=== PATIENT | female | born 1960 | race Caucasian/White ===

== ENCOUNTER 2017-03-10 04:00 | Emergency (ER) | payer MEDICARE ==
[2017-03-10] MEDS ORDERED: DUONEB 0.5-3 MG/3 ml Neb IH ONE ×2 (04:21→04:27)
[2017-03-10] MEDS ORDERED: DELTASONE 20 MG PO ONE (04:30)
--- NOTE | 2017-03-10 04:44 | ERPHSYRPT ---
- History of Present Illness Time Seen by Provider: 03/10/17 04:10 Source: patient Patient Subjective Stated Complaint: Pt sts sick for approx 1 week. Was seen last week and given steroid shot. Got Z-Nestor yesterday and started it. Tonight with right rib pain and feeling short of breath. Sts rib pain worse with deep inspiration. Triage Nursing Assessment: Pt alert, oriented, answers all questions appropriately. Skin p/w/d, resps non-labored. SPO2 98% room air. Lung sounds diminished all flores with coarse expiratory sounds right posterior upper and lower lobes. Physician History: PATIENT WITH A HISTORY OF COPD COMPLAINS OF A NONPRODUCTIVE COUGH FOR 1 WEEK. RECEIVED A STEROID INJECTION COUPLE OF DAYS AGO AND PLACED ON ANTIBIOTIC ZITHROMAX YESTERDAY, HAS OCCASIONAL LABORED BREATHING. DENIES FEVER, CHILLS OR CHEST PAIN. Timing/Duration: day(s) Cough Quality/Degree: dry cough Possible Cause: occasional episodes Modifying Factors: Improves With: activity International travel in last 2 weeks: No Allergies/Adverse Reactions: pregabalin [From Lyrica] Allergy (Intermediate, Verified 10/05/14 18:47) Swelling of Feet SWELLING OF LEGS sulfamethoxazole [From Bactrim] Allergy (Intermediate, Verified 03/10/17 04:08) Difficulty Swallowing trimethoprim [From Bactrim] Allergy (Intermediate, Verified 03/10/17 04:08) Difficulty Swallowing cephalexin [From Keflex] Allergy (Mild, Verified 03/10/17 04:08) Itching naproxen Allergy (Mild, Verified 10/05/14 18:47) red dye [Red Dye] Allergy (Mild, Verified 10/05/14 18:47) RASH doxycycline Allergy (Unknown, Verified 10/05/14 18:47) PT CANT REMEMBER WHAT IT DOES TO HER ONLY THAT SHE HAS AN ALLERGY TO IT gabapentin Allergy (Verified 10/05/14 18:47) Home Medications: Aspirin EC 325 mg [Ecotrin 325 MG] 325 mg PO DAILY 03/10/17 [History] Furosemide [Lasix] 20 mg PO DAILY 03/10/17 [History] Metoprolol Tartrate 25 mg [Lopressor 25MG Tab] 25 mg PO BID 03/10/17 [ History] Hx Tetanus, Diphtheria Vaccination/Date Given: Yes Hx Influenza Vaccination/Date Given: Yes Hx Pneumococcal Vaccination/Date Given: No Immunizations Up to Date: Yes - Review of Systems Constitutional: No Symptoms Eyes: No Symptoms Ears, Nose, & Throat: No Symptoms Respiratory: Cough Cardiac: No Symptoms Abdominal/Gastrointestinal: No Symptoms Genitourinary Symptoms: No Symptoms Musculoskeletal: No Symptoms Skin: No Symptoms Endocrine: No Symptoms Hematologic/Lymphatic: No Symptoms - Past Medical History Pertinent Past Medical History: Yes Neurological History: Migraines, Other ENT History: No Pertinent History Cardiac History: Hypertension Respiratory History: COPD, Pneumonia Endocrine Medical History: No Pertinent History Musculoskeletal History: Arthritis, Fibromyalgia, Osteoarthritis GI Medical History: GERD History: No Pertinent History Psycho-Social History: No Pertinent History Female Reproductive Disorders: No Pertinent History Other Medical History: history of MS - Past Surgical History Past Surgical History: Yes Neuro Surgical History: No Pertinent History Cardiac: No Pertinent History, Vascular Surgery Respiratory: No Pertinent History Gastrointestinal: Appendectomy, Hernia Repair Genitourinary: No Pertinent History Musculoskeletal: No Pertinent History Female Surgical History: No Pertinent History, Hysterectomy, Tubal Ligation Other Surgical History: tonsillectomy, ABD BYPASS SURG - Social History Smoking Status: Current every day smoker How long have you smoked: 44 Exposure to second hand smoke: No Drug Use: none Patient Lives Alone: No - Nursing Vital Signs Nursing Vital Signs: Initial Vital Signs Temperature 98.1 F 03/10/17 04:03 Pulse Rate 60 03/10/17 04:03 Respiratory Rate 18 03/10/17 04:03 Blood Pressure 135/97 03/10/17 04:03 O2 Sat by Pulse Oximetry 96 03/10/17 04:03 Pain Scale Pain Intensity 3 - Physical Exam General Appearance: no apparent distress, alert Eye Exam: PERRL/EOMI, eyes nml inspection Ears, Nose, Throat Exam: normal ENT inspection, TMs normal, pharynx normal, moist mucous membranes Neck Exam: normal inspection, non-tender, supple, full range of motion Respiratory Exam: diminished breath sounds (THERE IS NO ACCESSORY MUSCLE USE OR AUDIBLE WHEEZES), other (TERMINAL EXPIRATORY WHEEZES, NO RHONCHI), No respiratory distress Cardiovascular Exam: regular rate/rhythm, normal heart sounds Gastrointestinal/Abdomen Exam: soft, normal bowel sounds, No tenderness Back Exam: normal inspection, No CVA tenderness, No vertebral tenderness Extremity Exam: normal inspection, normal range of motion Neurologic Exam: alert, oriented x 3, cooperative, normal mood/affect, sensation nml, No motor deficits Skin Exam: normal color, warm, dry, No rash Lymphatic Exam: No adenopathy SpO2 Interpretation: normal SpO2: 98 Oxygen Delivery: Room Air - Radiology Exams Chest X-ray Interpretation: Interpreted by me (COPD WITHOUR INFILTRATES) Ordered Tests: Active Orders 24 hr Category Date Time Status CHEST 1 VIEW (PORTABLE) Stat Exams 03/10/17 04:23 Ordered Respiratory Nebulizer STAT RT 03/10/17 04:21 Active Medication Summary Discontinued Medications Generic Name Dose Route Start Last Admin Trade Name Abundioq PRN Reason Stop Dose Admin Albuterol/Ipratropium 3 ml 03/10/17 04:21 Duoneb 0.5-3 Mg/3 Ml Neb IH 03/10/17 04:22 STAT ONE Albuterol/Ipratropium Confirm 03/10/17 04:27 Duoneb 0.5-3 Mg/3 Ml Neb Administered 03/10/17 04:28 Dose 3 ml IH .STK-MED ONE Prednisone 60 mg 03/10/17 04:30 Deltasone 20 Mg PO 03/10/17 04:31 STAT ONE - Progress Progress: improved Air Movement: good Progress Note: 03/10/17 04:46 PATIENT GIVEN DUO NEB AEROSOL TREATMENT, PREDNISONE 60 MG ORALLY Counseled pt/family regarding: diagnosis, need for follow-up, rad results - Departure Time of Disposition: 05:10 Departure Disposition: Home Clinical Impression: EXACERBATION COPD Condition: Stable Critical Care Time: No Referrals: ANGELA QUINTEROS [Primary Care Provider] - Additional Instructions: BEGIN AEROSOL TREATMENTS EVERY 4 HOURS FOR DIFFICULTY BREATHING. CONTINUE ANTIBIOTIC ZITHOMAX DIRECTED. PREDNISONE 20MG, 2 TABLETS DAILY FOR 5 DAYS. TAKE OVER THE COUNTER COUGH FOR COUGHING. CONSULT YOUR PRIMARY HEALTH CARE PROVIDER FOR EVALUATION. FOLLOWUP WITH YOUR PRIMARY CARE PHYSICIAN FOR EVALUATION AND REFERRAL TO [facility]. Prescriptions: Prednisone 20 mg [Deltasone 20 mg] 2 tab PO DAILY #10 tablet
[2017-03-10] MEDS ORDERED: DELTASONE 20 MG ONE (04:56)
[2017-03-10 05:20] VITALS: BP 108/61; PULSE 60; O2SAT 96
--- NOTE | 2017-03-10 09:00 | XRAY ---
Indication: Cough. Comparison: October 05, 2014. Portable chest remains hyperinflated and clear with incidental calcified granulomas. Heart is not enlarged. Bony thorax intact again with mild degenerative changes. Impression: Stable nonacute hyperinflated chest.
== END 2017-03-10 05:20 | disposition home or self-care (01) ==
LOC: ED 04:00
DX: J44.1 Chronic obstructive pulmonary disease with (acute) exacerbation (principal); I10 Essential (primary) hypertension
CPT/HCPCS: 71010; 94640; 99284; A9270-GY; J7506

== ENCOUNTER 2022-10-13 18:09 | Inpatient (IN) | payer OTHER, MEDICARE ==
--- NOTE | 2022-10-13 18:21 | ERPHSYRPT ---
- History of Present Illness Time Seen by Provider: 10/13/22 18:20 Source: patient Exam Limitations: no limitations Physician History: This is a 62-year-old white female patient who has steroid-dependent and 3 L oxygen nasal cannula dependent COPD and continues to smoke cigarettes. She wears a CPAP machine at night. She has a history of CHF, hypertension, atrial fibrillation on Xarelto, CO2 retention, migraine headaches, gastroesophageal reflux disease, hyperlipidemia and fibromyalgia. In the last 2 days she has had worsening shortness of breath. She denies chest pain at this time. She has not had a fever. She has no abdominal pain. She has had no nausea vomiting or diarrhea. Activities at Onset: none Severity of Dyspnea-Max: moderate Severity of Dyspnea-Current: moderate Possible Cause: frequent episodes Modifying Factors: Improves With: activity (Worsens), oxygen (Improves) Associated Symptoms: denies symptoms, No chest pain/discomfort Allergies/Adverse Reactions: pregabalin [From Lyrica] Allergy (Intermediate, Verified 10/13/22 18:25) Swelling of Feet SWELLING OF LEGS sulfamethoxazole [From Bactrim] Allergy (Intermediate, Verified 10/13/22 18:25) Difficulty Swallowing trimethoprim [From Bactrim] Allergy (Intermediate, Verified 10/13/22 18:25) Difficulty Swallowing cephalexin [From Keflex] Allergy (Mild, Verified 10/13/22 18:25) Itching naproxen Allergy (Mild, Verified 10/13/22 18:25) red dye [Red Dye] Allergy (Mild, Verified 10/13/22 18:25) RASH doxycycline Allergy (Unknown, Verified 10/13/22 18:25) PT CANT REMEMBER WHAT IT DOES TO HER ONLY THAT SHE HAS AN ALLERGY TO IT gabapentin Allergy (Verified 10/13/22 18:25) Home Medications: Furosemide [Lasix] 20 mg PO DAILY 03/10/17 [History] Metoprolol Tartrate 25 mg [Lopressor 25MG Tab] 25 mg PO BID 03/10/17 [History] Atorvastatin Calcium 80 mg PO HS 10/13/22 [History] Fluticasone/Umeclidin/Vilanter [Trelegy Ellipta 100-62.5-25] 1 puff IH DAILY 10/13/22 [History] Ipratropium/Albuterol Sulfate [Combivent Respimat Inhal [place]] 1 puff IH QID 10/13/22 [History] Nicotine 21 mg [Nicoderm CQ 21 MG] 1 patch TOP DAILY 10/13/22 [History] Omeprazole 40 mg PO DAILY 10/13/22 [History] Potassium Chloride 10 mg PO DAILY 10/13/22 [History] Rivaroxaban [Xarelto] 15 mg PO DAILY 10/13/22 [History] Hx Tetanus, Diphtheria Vaccination/Date Given: Yes Hx Influenza Vaccination/Date Given: Yes Hx Pneumococcal Vaccination/Date Given: No Travel Risk - International Travel Have you traveled outside of the country in past 3 weeks: No - Coronavirus Screening Are you exhibiting any of the following symptoms?: Yes Symptoms: Shortness of Breath Close contact with a COVID-19 positive Pt in past 14-21 Days: No - Review of Systems Constitutional: No Symptoms Eyes: No Symptoms Ears, Nose, & Throat: No Symptoms Respiratory: Dyspnea Cardiac: No Symptoms Abdominal/Gastrointestinal: No Symptoms Genitourinary Symptoms: No Symptoms Musculoskeletal: No Symptoms Skin: No Symptoms Neurological: No Symptoms Psychological: No Symptoms Endocrine: No Symptoms Hematologic/Lymphatic: No Symptoms Immunological/Allergic: No Symptoms All Other Systems: Reviewed and Negative - Past Medical History Pertinent Past Medical History: Yes Neurological History: Migraines, Other ENT History: No Pertinent History Cardiac History: Hypertension Respiratory History: COPD, Pneumonia Endocrine Medical History: No Pertinent History Musculoskeletal History: Arthritis, Fibromyalgia, Osteoarthritis GI Medical History: GERD History: No Pertinent History Psycho-Social History: No Pertinent History Female Reproductive Disorders: No Pertinent History Other Medical History: history of MS - Past Surgical History Past Surgical History: Yes Neuro Surgical History: No Pertinent History Cardiac: No Pertinent History, Vascular Surgery Respiratory: No Pertinent History Gastrointestinal: Appendectomy, Hernia Repair Genitourinary: No Pertinent History Musculoskeletal: No Pertinent History Female Surgical History: No Pertinent History, Hysterectomy, Tubal Ligation Other Surgical History: tonsillectomy, ABD BYPASS SURG - Social History Smoking Status: Current every day smoker How long have you smoked: 44 Exposure to second hand smoke: No Drug Use: none Patient Lives Alone: No - Nursing Vital Signs Nursing Vital Signs: Initial Vital Signs Temperature 98.1 F 10/13/22 18:25 Pulse Rate 104 H 10/13/22 18:25 Respiratory Rate 18 10/13/22 18:25 Blood Pressure 95/55 10/13/22 18:25 O2 Sat by Pulse Oximetry 97 10/13/22 18:25 Pain Scale Pain Intensity 8 - Physical Exam General Appearance: no apparent distress, alert, anxiety Eye Exam: PERRL/EOMI, eyes nml inspection Ears, Nose, Throat Exam: hearing grossly normal, normal ENT inspection, normal pharynx Neck Exam: normal inspection, non-tender, supple, full range of motion Respiratory Exam: normal breath sounds, lungs clear, airway intact, No chest tenderness, No respiratory distress Cardiovascular/Chest Exam: normal heart sounds, regular rate/rhythm Abdominal/Gastrointestinal Exam: soft, normal bowel sounds, No tenderness Rectal Exam: not done Extremity Exam: non-tender, normal range of motion, pedal edema (Bilateral mild ankle edema) Neurologic Exam: alert, oriented x 3, cooperative, boot and saddle repair person II-XII nml as tested, normal mood/affect, nml cerebellar function, nml station & gait, sensation nml Skin Exam: normal color, warm, dry Lymphatic Exam: No adenopathy SpO2 Interpretation: normal O2 Delivery: Room Air - Course Nursing assessment & vital signs reviewed: Yes EKG Interpreted by Me: RATE (92), A-fib, Other (No acute ischemia on today's twelve-lead EKG which I interpreted.) Ordered Tests: Active Orders 24 hr Category Date Time Status Motor Vehicle [employer]er STAT Care 10/13/22 18:40 Active EKG-ER Only STAT Care 10/13/22 18:40 Active IV Insertion STAT Care 10/13/22 18:40 Active Oxygen-ED Only Nasal Cannula 3 lpm Care 10/13/22 18:40 Active Pulse Oximetry (ED) STAT Care 10/13/22 18:40 Active CHEST 1 VIEW (PORTABLE) Stat Exams 10/13/22 18:40 Taken ARTERIAL BLOOD GASES Stat Lab 10/13/22 19:02 Completed CBC W DIFF Stat Lab 10/13/22 19:00 Completed CMP Stat Lab 10/13/22 19:00 Completed D-DIMER QUANTITATIVE Stat Lab 10/13/22 19:00 Completed NT PRO BNPII Stat Lab 10/13/22 19:00 Completed TROPONIN Q4H Lab 10/13/22 19:00 Completed TROPONIN Q4H Lab 10/13/22 22:45 Ordered TROPONIN Q4H Lab 10/14/22 02:45 Ordered Respiratory Therapy Assessment DAILY RT 10/13/22 19:06 Active Transfer Order Routine Transfer 10/13/22 Ordered Medication Summary Discontinued Medications Generic Name Dose Route Start Last Admin Trade Name Grabiel PRN Reason Stop Dose Admin Albuterol Sulfate 2.5 mg 10/13/22 18:40 10/13/22 19:03 Albuterol Sulfate 2.5 Mg/3 Ml Neb IH 10/13/22 18:41 2.5 mg STAT ONE Administration Albuterol Sulfate Confirm 10/13/22 19:01 Albuterol Sulfate 2.5 Mg/3 Ml Neb Administered 10/13/22 19:02 Dose 2.5 mg IH .STK-MED ONE Methylprednisolone Sodium 0 mg 10/13/22 18:40 10/13/22 19:05 Succinate 125 mg/ Sterile IV 10/13/22 18:41 125 mg Water 2 ml STAT ONE Administration Furosemide 40 mg 10/13/22 19:40 10/13/22 20:12 Furosemide 40 Mg/4 Ml Vial IV 10/13/22 19:41 40 mg STAT ONE Administration Furosemide Confirm 10/13/22 20:09 Furosemide 40 Mg/4 Ml Vial Administered 10/13/22 20:10 Dose 40 mg .ROUTE .STK-MED ONE Methylprednisolone Sodium Succinate Confirm 10/13/22 19:04 Methylprednis Sod Succ 125 Mg/2 Ml Vial Administered 10/13/22 19:05 Dose 125 mg .ROUTE .STK-MED ONE Sterile Water Confirm 10/13/22 19:04 Water For Injection,Sterile 10 Ml Vial Administered 10/13/22 19:05 Dose 10 ml IJ .STK-MED ONE Lab/Rad Data: Laboratory Result Diagrams 10/13/22 19:00 10/13/22 19:00 Laboratory Results 10/13/22 10/13/22 10/13/22 Range/Units 19:02 19:00 19:00 WBC (4.0-10.5) x10^3/uL RBC (4.1-5.4) x10^6/uL Hgb (12.0-16.0) g/dL Hct (35-47) % MCV (78-100) fL MCH (26-32) pg MCHC (32-36) g/dL RDW (11.5-14.0) % Plt Count (150-450) x10^3/uL MPV (7.5-11.0) fL Gran % (36.0-66.0) % Immature Gran % (Auto) (0.00-0.4) % Nucleat RBC Rel Count (0.00-0.1) % Eos # (Auto) (0-0.5) x10^3/uL Immature Gran # (Auto) (0.00-0.03) x10^3u/L Absolute Lymphs (auto) (1.0-4.6) x10^3/uL Absolute Monos (auto) (0.0-1.3) x10^3/uL Absolute Nucleated RBC (0.00-0.01) x10^3u/L Lymphocytes % (24.0-44.0) % Monocytes % (0.0-12.0) % Eosinophils % (0.00-5.0) % Basophils % (0.0-0.4) % Absolute Granulocytes (1.4-6.9) x10^3/uL Basophils # (0-0.4) x10^3/uL D-Dimer (0.0-0.50) mg/L Puncture Site LEFT BRACHIAL pCO2 47 H (35-45) mmHg pO2 35 L* (75-100) mmHg Base Excess 0.9 (-2.0-2.0) O2 Saturation 56.1 L (94-100) g/dF ABG pH 7.36 (7.35-7.45) ABG HCO3 26.6 (22-28) ABG O2 Sat (Measured) 62.7 L (95-100) % Mitchell Test NOT APPLICABLE A-a Gradient 134 a/A Ratio 0.21 Hemoglobin 8.5 Carboxyhemoglobin 9.4 H* (0.0-6.9) % THgb Methemoglobin 1.1 L (1.4-1.5) % Temperature 37.0 C POC O2 Flow Rate 32 % Sodium (137-145) mmol/L Potassium 4.7 (3.5-5.1) mmol/L Chloride (98-107) mmol/L Carbon Dioxide (22-30) mmol/L Anion Gap (5-15) MEQ/L BUN (7-17) mg/dL Creatinine (0.52-1.04) mg/dL Estimated GFR ML/MIN Glucose (74-106) mg/dL Calcium (8.4-10.2) mg/dL Total Bilirubin (0.2-1.3) mg/dL AST (14-36) U/L ALT (0-35) U/L Alkaline Phosphatase (38-126) U/L Troponin I 0.022 (0.000-0.034) ng/mL NT-Pro-B Natriuret Pep (<300) pg/mL Serum Total Protein (6.3-8.2) g/dL Albumin (3.5-5.0) g/dL Influenza Type A Ag NEGATIVE (NEGATIVE) Influenza Type B Ag NEGATIVE (NEGATIVE) RSV (PCR) NEGATIVE (NEGATIVE) SARS-CoV-2 (PCR) NEGATIVE (NEGATIVE) 10/13/22 10/13/22 10/13/22 Range/Units 19:00 19:00 19:00 WBC 13.3 H (4.0-10.5) x10^3/uL RBC 3.24 L (4.1-5.4) x10^6/uL Hgb 7.8 L (12.0-16.0) g/dL Hct 28.2 L (35-47) % MCV 87.0 (78-100) fL MCH 24.1 L (26-32) pg MCHC 27.7 L (32-36) g/dL RDW 19.2 H (11.5-14.0) % Plt Count 291 (150-450) x10^3/uL MPV 9.4 (7.5-11.0) fL Gran % 88.6 H (36.0-66.0) % Immature Gran % (Auto) 0.8 H (0.00-0.4) % Nucleat RBC Rel Count 2.6 H (0.00-0.1) % Eos # (Auto) 0.05 (0-0.5) x10^3/uL Immature Gran # (Auto) 0.11 H (0.00-0.03) x10^3u/L Absolute Lymphs (auto) 0.58 L (1.0-4.6) x10^3/uL Absolute Monos (auto) 0.76 (0.0-1.3) x10^3/uL Absolute Nucleated RBC 0.35 H (0.00-0.01) x10^3u/L Lymphocytes % 4.4 L (24.0-44.0) % Monocytes % 5.7 (0.0-12.0) % Eosinophils % 0.4 (0.00-5.0) % Basophils % 0.1 (0.0-0.4) % Absolute Granulocytes 11.78 H (1.4-6.9) x10^3/uL Basophils # 0.01 (0-0.4) x10^3/uL D-Dimer 1.87 H* (0.0-0.50) mg/L Puncture Site pCO2 (35-45) mmHg pO2 (75-100) mmHg Base Excess (-2.0-2.0) O2 Saturation (94-100) g/dF ABG pH (7.35-7.45) ABG HCO3 (22-28) ABG O2 Sat (Measured) (95-100) % Mitchell Test A-a Gradient a/A Ratio Hemoglobin Carboxyhemoglobin (0.0-6.9) % THgb Methemoglobin (1.4-1.5) % Temperature C POC O2 Flow Rate % Sodium 136 L (137-145) mmol/L Potassium 4.6 (3.5-5.1) mmol/L Chloride 97 L (98-107) mmol/L Carbon Dioxide 32 H (22-30) mmol/L Anion Gap 11.0 (5-15) MEQ/L BUN 49 H (7-17) mg/dL Creatinine 1.94 H (0.52-1.04) mg/dL Estimated GFR 27.8 ML/MIN Glucose 128 H (74-106) mg/dL Calcium 8.1 L (8.4-10.2) mg/dL Total Bilirubin 0.50 (0.2-1.3) mg/dL AST 17 (14-36) U/L ALT 16 (0-35) U/L Alkaline Phosphatase 128 H (38-126) U/L Troponin I (0.000-0.034) ng/mL NT-Pro-B Natriuret Pep 82708 (<300) pg/mL Serum Total Protein 5.4 L (6.3-8.2) g/dL Albumin 3.0 L (3.5-5.0) g/dL Influenza Type A Ag (NEGATIVE) Influenza Type B Ag (NEGATIVE) RSV (PCR) (NEGATIVE) SARS-CoV-2 (PCR) (NEGATIVE) - Progress Progress: improved, re-examined Air Movement: fair Progress Note: 10/13/22 19:26 Chest x-ray was interpreted by me. There is a question of increased bibasilar vascular markings. There is a small right pleural effusion. 10/13/22 20:24 This patient has medical issues that are of high complexity. The level of complexity and the work-up based on the patient's past medical history, review of her medication list, review of her medication allergy list, history of present illness and physical examination findings. The work-up includes CBC, CMP, chest x-ray, twelve-lead EKG, troponin, BNP, D-dimer. I reviewed the res ults of the above-stated findings and the results were discussed with the patient and her daughter. Patient has diagnosis of chronic progressive renal disease, COPD exacerbation, CHF, anemia, elevated D-dimer, hypoxia and shortness of breath. I spoke with Dr. Miller who is the telehospitalist on this evening. I reviewed the above work-up, results as well as the patient's history and physical findings and chest x-ray, twelve-lead EKG results. He accepts the patient in admission. We will place her on telemetry. Dr. Miller and I decided on providing the patient with 40 mg of intravenous Lasix and hold on the type and cross. I will type and screen her in the event her repeat hemoglobin is low. 10/13/22 20:31 Blood Culture(s) Obtained: Yes Antibiotics given: No Counseled pt/family regarding: lab results, diagnosis, rad results, smoking cessation Medical Desision Making - Independent Historian Additional History obtained from: Spouse - Discussion of managment Care discussed with:: hospitalist (Dr. Miller) Reviewed:: Test results, Need for additional workup Agreed on:: Treatment plan, decision to admit Will see patient: in hospital - Diagnostic Testing Diagnostic test were ordered, analyzed, and reviewed by me: Yes Radiological Interpretation: Reviewed by me - Risk of complications The pt has a high risk of morbidity or mortality based on: Decision regarding hospitilization or escalation of hosp level of care - Departure Departure Disposition: In-patient Admission Clinical Impression: Leukocytosis, Anemia, Hypoxia, Atrial fibrillation, Shortness of breath, Elevated d-dimer, Chronic renal failure, COPD exacerbation Condition: Fair Critical Care Time: Yes Critical Care Time(excluding separately billable procedures): Critical 30-74 mins (45) Referrals: KALLIE ANTONY, CARDIOVASCULAR OPERATING ROOM NURSE [Primary Care Provider] - Follow up/PCP as directed Instructions: Chronic Obstructive Pulmonary Disease
[2022-10-13] MEDS ORDERED: solu-MEDROL 125 MG, Sterile H2O 10 ml 2 ML IV ONE ×2 (18:40)
[2022-10-13] MEDS ORDERED: PROVENTIL 2.5 MG/3 ML NEB IH ONE ×2 (18:40→19:01)
[2022-10-13] MEDS ORDERED: solu-MEDROL ONE (19:04)
[2022-10-13] MEDS ORDERED: Sterile H2O 10 ml IJ ONE (19:04)
[2022-10-13 19:08] LABS: Absolute Neutrophil Ct (ANC) 11.78 x10^3/uL (1.4-6.9); BASOPHIL % 0.1 % (0.0-0.4); Basophil (Absolute #) 0.01 x10^3/uL (0-0.4); Eosinophil % 0.4 % (0.00-5.0); Eosinophil (Absolute #) 0.05 x10^3/uL (0-0.5); Hematocrit 28.2 % (35-47); Hemoglobin 7.8 g/dL (12.0-16.0); IMMATURE GRAN # 0.11 x10^3u/L (0.00-0.03); IMMATURE GRAN % 0.8 % (0.00-0.4); Lymphocyte (Absolute #) 0.58 x10^3/uL (1.0-4.6); Lymphocytes % 4.4 % (24.0-44.0); Mean Corpuscular Hemoglobin 24.1 pg (26-32); Mean Corpuscular Hgb Concent. 27.7 g/dL (32-36); Mean Platelet Volume 9.4 fL (7.5-11.0); Monocyte (Absolute #) 0.76 x10^3/uL (0.0-1.3); Monocytes % 5.7 % (0.0-12.0); NUCLEATED RBC # 0.35 x10^3u/L (0.00-0.01); NUCLEATED RBC % 2.6 % (0.00-0.1); Neutrophil % 88.6 % (36.0-66.0); Platelet Count 291 x10^3/uL (150-450); Red Blood Count 3.24 x10^6/uL (4.1-5.4); Red Cell Distribution Width 19.2 % (11.5-14.0); White Blood Count 13.3 x10^3/uL (4.0-10.5)
[2022-10-13 19:28] LABS: A-aADO2 134; ABG HEMOGLOBIN 8.5; ABG POTASSIUM 4.7 (3.5-5.1); ARTERIAL BLD GAS O2 SATURATION 62.7 % (95-100); ARTERIAL BLOOD GAS BASE EXCESS 0.9 (-2.0-2.0); ARTERIAL BLOOD GAS FIO2 32 %; ARTERIAL BLOOD GAS PCO2 47 mmHg (35-45); ARTERIAL BLOOD GAS pH 7.36 (7.35-7.45); HCO3- 26.6 (22-28); HGB O2 SAT 56.1 g/dF (94-100); Methhemoglobin 1.1 % (1.4-1.5); paO2 pAO1 0.21
[2022-10-13 19:29] LABS: ARTERIAL BLOOD GAS PO2 35 mmHg (75-100); CARBOXYHEMOGLOBIN 9.4 % THgb (0.0-6.9)
[2022-10-13 19:30] LABS: BILIRUBIN,TOTAL 0.5 mg/dL (0.2-1.3); Calcium 8.1 mg/dL (8.4-10.2); Creatinine 1 1.94 mg/dL (0.52-1.04); EST GLOMERULAR FILTRATION RATE 27.8 ML/MIN; Potassium 4.6 mmol/L (3.5-5.1); Total Protein 5.4 g/dL (6.3-8.2)
[2022-10-13 19:30] LABS: ABG SITE LEFT BRACHIAL
[2022-10-13] MEDS ORDERED: Lasix 40 MG/4 ML IV ONE (19:40)
[2022-10-13 19:51] LABS: INFLUENZA A NEGATIVE (NEGATIVE); INFLUENZA B NEGATIVE (NEGATIVE); RESPIRATORY SYNCTIAL VIRUS NEGATIVE (NEGATIVE); SARS-CoV-2 Xpert Express NEGATIVE (NEGATIVE)
[2022-10-13] MEDS ORDERED: Lasix 40 MG/4 ML ONE (20:09)
[2022-10-13] MEDS ORDERED: Zofran 4 MG/2 ML VIAL IV PRN (21:13)
[2022-10-13] MEDS ORDERED: TYLENOL 325 MG PO PRN (21:13)
[2022-10-13 21:26] LABS: ABO TYPING A; Antibody Screen NEGATIVE (NEGATIVE); RH TYPING POSITIVE
[2022-10-13 21:49] LABS: Slide Review 1 YES
[2022-10-14] MEDS: PROVENTIL 2.5 MG/3 ML NEB IH SCH ×4 (00:06→18:48)
[2022-10-14] MEDS ORDERED: Nicoderm CQ 21 MG TOP SCH ×2 (02:00→22:00)
--- NOTE | 2022-10-14 02:08 | PCM.HP ---
History of Present Illness - Chief Complaint Chief Complaint: COPD with Exacerbation Date: 10/13/22 History of Present Illness: is a 62 year old female who presents with 3-4 days of progressive shortness of breath. She is an active smoker, consuming 1 ppd. She denies any chest pain or chest discomfort. She has intermittent ankle edema, but never awakes with swelling. She believes it was her smoking that triggered the exacerbation. She routinely uses 3 LPM of NC at home. In the ED she was requiring 6LPM. She feels limited by dyspnea. Medications & Allergies Home Medications: Home Medication List Furosemide [Lasix] 20 mg PO DAILY 03/10/17 [History Confirmed 10/13/22] Metoprolol Tartrate 25 mg [Lopressor 25MG Tab] 100 mg PO BID 03/10/17 [History Confirmed 10/13/22] Prednisone 20 mg [Deltasone 20 mg] 2 tab PO DAILY #10 tablet 03/10/17 [Rx Confirmed 10/13/22] Atorvastatin Calcium 80 mg PO HS 10/13/22 [History Confirmed 10/13/22] Fluticasone/Umeclidin/Vilanter [Trelegy Ellipta 100-62.5-25] 1 puff IH DAILY 10/13/22 [History Confirmed 10/13/22] Ipratropium/Albuterol Sulfate [Combivent Respimat Inhal [place]] 1 puff IH QID 10/13/22 [History Confirmed 10/13/22] Nicotine 21 mg [Nicoderm CQ 21 MG] 1 patch TOP DAILY 10/13/22 [History Confirmed 10/13/22] Omeprazole 40 mg PO DAILY 10/13/22 [History Confirmed 10/13/22] Potassium Chloride 10 mg PO DAILY 10/13/22 [History Confirmed 10/13/22] Rivaroxaban [Xarelto] 15 mg PO DAILY 10/13/22 [History Confirmed 10/13/22] Allergies/Adverse Reactions: Allergies Allergy/AdvReac Type Severity Reaction Status Date / Time pregabalin [From Lyrica] Allergy Intermediate Swelling Verified 10/13/22 18:25 of Feet sulfamethoxazole Allergy Intermediate Difficulty Verified 10/13/22 18:25 [From Bactrim] Swallowing trimethoprim [From Bactrim] Allergy Intermediate Difficulty Verified 10/13/22 18:25 Swallowing cephalexin [From Keflex] Allergy Mild Itching Verified 10/13/22 18:25 naproxen Allergy Mild Verified 10/13/22 18:25 red dye [Red Dye] Allergy Mild Verified 10/13/22 18:25 doxycycline Allergy Unknown Verified 10/13/22 18:25 gabapentin Allergy Verified 10/13/22 18:25 - Past Medical History Past Medical History: Yes Neurological History: Migraines ENT History: No Pertinent History Cardiac History: Congestive Heart Failure, Coronary Artery Disease, High Cholesterol, Hypertension Respiratory History: Asthma, CHF, COPD Endocrine Medical History: No Pertinent History Musculoskelatal History: Fractures GI Medical History: Other History: Dialysis, Renal Disease Pyscho-Social History: No Pertinent History Reproductive Disorders: Cervical Cancer Comment: Hysterectomy, Apendectomy, Perlvis FX. - Female History Are you now?: No - Past Surgical History Past Surgical History: Yes Neuro Surgical History: No Pertinent History Cardiac History: No Pertinent History Respiratory Surgery: No Pertinent History GI Surgical History: Appendectomy Genitourinary Surgical Hx: No Pertinent History Musculskeletal Surgical Hx: No Pertinent History Female Surgical History: Hysterectomy Other Surgical History: tonsillectomy, ABD BYPASS SURG - Social History Smoking Status: Current every day smoker How long have you smoked: 44 Exposure to second hand smoke: No Alcohol: None Drug Use: none - Physical Exam Vital Signs: Vital Signs - 24 hr Temp Pulse Resp BP Pulse Ox 10/14/22 00:06 92 H 19 95 10/13/22 23:36 97.7 F 107/58 10/13/22 22:00 98 H 19 97 10/13/22 21:41 97.1 F 98 H 19 97/61 10/13/22 20:16 85 20 115/70 94 L 10/13/22 19:16 78 23 112/68 94 L 10/13/22 19:06 78 24 92 L 10/13/22 18:40 100 10/13/22 18:25 98.1 F 104 H 18 95/55 97 General Appearance: no apparent distress Neurologic Exam: alert, oriented x 3, cooperative, normal mood/affect Respiratory Exam: diminished breath sounds Cardiovascular Exam: regular rate/rhythm, normal heart sounds Results - Labs Lab/Micro Results: Lab Results-Last 24 Hours 10/13/22 10/13/22 10/13/22 Range/Units 19:00 19:00 19:00 WBC 13.3 H (4.0-10.5) x10^3/uL RBC 3.24 L (4.1-5.4) x10^6/uL Hgb 7.8 L (12.0-16.0) g/dL Hct 28.2 L (35-47) % MCV 87.0 (78-100) fL MCH 24.1 L (26-32) pg MCHC 27.7 L (32-36) g/dL RDW 19.2 H (11.5-14.0) % Plt Count 291 (150-450) x10^3/uL MPV 9.4 (7.5-11.0) fL Gran % 88.6 H (36.0-66.0) % Immature Gran % (Auto) 0.8 H (0.00-0.4) % Nucleat RBC Rel Count 2.6 H (0.00-0.1) % Eos # (Auto) 0.05 (0-0.5) x10^3/uL Immature Gran # (Auto) 0.11 H (0.00-0.03) x10^3u/L Absolute Lymphs (auto) 0.58 L (1.0-4.6) x10^3/uL Absolute Monos (auto) 0.76 (0.0-1.3) x10^3/uL Absolute Nucleated RBC 0.35 H (0.00-0.01) x10^3u/L Lymphocytes % 4.4 L (24.0-44.0) % Monocytes % 5.7 (0.0-12.0) % Eosinophils % 0.4 (0.00-5.0) % Basophils % 0.1 (0.0-0.4) % Absolute Granulocytes 11.78 H (1.4-6.9) x10^3/uL Basophils # 0.01 (0-0.4) x10^3/uL Smear Path Review Pending D-Dimer 1.87 H* (0.0-0.50) mg/L Puncture Site pCO2 (35-45) mmHg pO2 (75-100) mmHg Base Excess (-2.0-2.0) O2 Saturation (94-100) g/dF ABG pH (7.35-7.45) ABG HCO3 (22-28) ABG O2 Sat (Measured) (95-100) % Mitchell Test A-a Gradient a/A Ratio Hemoglobin Carboxyhemoglobin (0.0-6.9) % THgb Methemoglobin (1.4-1.5) % Temperature C POC O2 Flow Rate % Sodium 136 L (137-145) mmol/L Potassium 4.6 (3.5-5.1) mmol/L Chloride 97 L (98-107) mmol/L Carbon Dioxide 32 H (22-30) mmol/L Anion Gap 11.0 (5-15) MEQ/L BUN 49 H (7-17) mg/dL Creatinine 1.94 H (0.52-1.04) mg/dL Estimated GFR 27.8 ML/MIN Glucose 128 H (74-106) mg/dL Calcium 8.1 L (8.4-10.2) mg/dL Total Bilirubin 0.50 (0.2-1.3) mg/dL AST 17 (14-36) U/L ALT 16 (0-35) U/L Alkaline Phosphatase 128 H (38-126) U/L Troponin I (0.000-0.034) ng/mL NT-Pro-B Natriuret Pep 33355 (<300) pg/mL Serum Total Protein 5.4 L (6.3-8.2) g/dL Albumin 3.0 L (3.5-5.0) g/dL Influenza Type A Ag (NEGATIVE) Influenza Type B Ag (NEGATIVE) RSV (PCR) (NEGATIVE) SARS-CoV-2 (PCR) (NEGATIVE) Slides for Path Review YES ABO Group Rh Factor Antibody Screen (NEGATIVE) 10/13/22 10/13/22 10/13/22 Range/Units 19:00 19:00 19:02 WBC (4.0-10.5) x10^3/uL RBC (4.1-5.4) x10^6/uL Hgb (12.0-16.0) g/dL Hct (35-47) % MCV (78-100) fL MCH (26-32) pg MCHC (32-36) g/dL RDW (11.5-14.0) % Plt Count (150-450) x10^3/uL MPV (7.5-11.0) fL Gran % (36.0-66.0) % Immature Gran % (Auto) (0.00-0.4) % Nucleat RBC Rel Count (0.00-0.1) % Eos # (Auto) (0-0.5) x10^3/uL Immature Gran # (Auto) (0.00-0.03) x10^3u/L Absolute Lymphs (auto) (1.0-4.6) x10^3/uL Absolute Monos (auto) (0.0-1.3) x10^3/uL Absolute Nucleated RBC (0.00-0.01) x10^3u/L Lymphocytes % (24.0-44.0) % Monocytes % (0.0-12.0) % Eosinophils % (0.00-5.0) % Basophils % (0.0-0.4) % Absolute Granulocytes (1.4-6.9) x10^3/uL Basophils # (0-0.4) x10^3/uL Smear Path Review D-Dimer (0.0-0.50) mg/L Puncture Site LEFT BRACHIAL pCO2 47 H (35-45) mmHg pO2 35 L* (75-100) mmHg Base Excess 0.9 (-2.0-2.0) O2 Saturation 56.1 L (94-100) g/dF ABG pH 7.36 (7.35-7.45) ABG HCO3 26.6 (22-28) ABG O2 Sat (Measured) 62.7 L (95-100) % Mitchell Test NOT APPLICABLE A-a Gradient 134 a/A Ratio 0.21 Hemoglobin 8.5 Carboxyhemoglobin 9.4 H* (0.0-6.9) % THgb Methemoglobin 1.1 L (1.4-1.5) % Temperature 37.0 C POC O2 Flow Rate 32 % Sodium (137-145) mmol/L Potassium 4.7 (3.5-5.1) mmol/L Chloride (98-107) mmol/L Carbon Dioxide (22-30) mmol/L Anion Gap (5-15) MEQ/L BUN (7-17) mg/dL Creatinine (0.52-1.04) mg/dL Estimated GFR ML/MIN Glucose (74-106) mg/dL Calcium (8.4-10.2) mg/dL Total Bilirubin (0.2-1.3) mg/dL AST (14-36) U/L ALT (0-35) U/L Alkaline Phosphatase (38-126) U/L Troponin I 0.022 (0.000-0.034) ng/mL NT-Pro-B Natriuret Pep (<300) pg/mL Serum Total Protein (6.3-8.2) g/dL Albumin (3.5-5.0) g/dL Influenza Type A Ag NEGATIVE (NEGATIVE) Influenza Type B Ag NEGATIVE (NEGATIVE) RSV (PCR) NEGATIVE (NEGATIVE) SARS-CoV-2 (PCR) NEGATIVE (NEGATIVE) Slides for Path Review ABO Group Rh Factor Antibody Screen (NEGATIVE) 10/13/22 10/13/22 Range/Units 20:05 22:50 WBC (4.0-10.5) x10^3/uL RBC (4.1-5.4) x10^6/uL Hgb (12.0-16.0) g/dL Hct (35-47) % MCV (78-100) fL MCH (26-32) pg MCHC (32-36) g/dL RDW (11.5-14.0) % Plt Count (150-450) x10^3/uL MPV (7.5-11.0) fL Gran % (36.0-66.0) % Immature Gran % (Auto) (0.00-0.4) % Nucleat RBC Rel Count (0.00-0.1) % Eos # (Auto) (0-0.5) x10^3/uL Immature Gran # (Auto) (0.00-0.03) x10^3u/L Absolute Lymphs (auto) (1.0-4.6) x10^3/uL Absolute Monos (auto) (0.0-1.3) x10^3/uL Absolute Nucleated RBC (0.00-0.01) x10^3u/L Lymphocytes % (24.0-44.0) % Monocytes % (0.0-12.0) % Eosinophils % (0.00-5.0) % Basophils % (0.0-0.4) % Absolute Granulocytes (1.4-6.9) x10^3/uL Basophils # (0-0.4) x10^3/uL Smear Path Review D-Dimer (0.0-0.50) mg/L Puncture Site pCO2 (35-45) mmHg pO2 (75-100) mmHg Base Excess (-2.0-2.0) O2 Saturation (94-100) g/dF ABG pH (7.35-7.45) ABG HCO3 (22-28) ABG O2 Sat (Measured) (95-100) % Mitchell Test A-a Gradient a/A Ratio Hemoglobin Carboxyhemoglobin (0.0-6.9) % THgb Methemoglobin (1.4-1.5) % Temperature C POC O2 Flow Rate % Sodium (137-145) mmol/L Potassium (3.5-5.1) mmol/L Chloride (98-107) mmol/L Carbon Dioxide (22-30) mmol/L Anion Gap (5-15) MEQ/L BUN (7-17) mg/dL Creatinine (0.52-1.04) mg/dL Estimated GFR ML/MIN Glucose (74-106) mg/dL Calcium (8.4-10.2) mg/dL Total Bilirubin (0.2-1.3) mg/dL AST (14-36) U/L ALT (0-35) U/L Alkaline Phosphatase (38-126) U/L Troponin I 0.046 H* (0.000-0.034) ng/mL NT-Pro-B Natriuret Pep (<300) pg/mL Serum Total Protein (6.3-8.2) g/dL Albumin (3.5-5.0) g/dL Influenza Type A Ag (NEGATIVE) Influenza Type B Ag (NEGATIVE) RSV (PCR) (NEGATIVE) SARS-CoV-2 (PCR) (NEGATIVE) Slides for Path Review ABO Group A Rh Factor POSITIVE Antibody Screen NEGATIVE (NEGATIVE) - Radiology Impressions Radiology Exams & Impressions: Radiology Procedures Category Date Time Status CHEST 1 VIEW (PORTABLE) Stat Exams 10/13/22 18:40 Taken - Other Procedures and Tests Respiratory Therapy 10/13/22 19:06 Respiratory Therapy Assessment DAILY 10/13/22 22:25 Oxygen Nasal Cannula 6 lpm 10/13/22 22:28 BiPap/CPAP ROUTINE Assessment/Plan (1) Anemia Current Visit: Yes Status: Chronic Qualifiers: Iron deficiency anemia type: chronic blood loss Code(s): D64.9 - ANEMIA, UNSPECIFIED (2) Hypoxia Current Visit: Yes Status: Acute Code(s): R09.02 - HYPOXEMIA (3) Atrial fibrillation Current Visit: Yes Status: Chronic Qualifiers: Atrial fibrillation type: paroxysmal Qualified Code(s): I48.0 - Paroxysmal atrial fibrillation Code(s): I48.91 - UNSPECIFIED ATRIAL FIBRILLATION (4) Chronic renal failure Current Visit: Yes Status: Chronic Qualifiers: Chronic kidney disease stage: stage 3 (moderate) (5) COPD exacerbation Current Visit: Yes Status: Chronic Assessment & Plan: 1. Solumdrol in the ED, will continue prednisone 40 mg daily 2. Will start azithromycin 250 mg daily 3. duoNebs q4h PRN Code(s): J44.1 - CHRONIC OBSTRUCTIVE PULMONARY DISEASE W (ACUTE) EXACERBATION Telemedicine Encounter - Telemedicine Encounter Telemedicine Encounter: The entirety of this encounter was performed via Telemedicine"
[2022-10-14 03:22] LABS: Absolute Neutrophil Ct (ANC) 7.45 x10^3/uL (1.4-6.9); BASOPHIL % 0.1 % (0.0-0.4); Basophil (Absolute #) 0.01 x10^3/uL (0-0.4); Eosinophil (Absolute #) 0 x10^3/uL (0-0.5); Hemoglobin 7.5 g/dL (12.0-16.0); IMMATURE GRAN # 0.04 x10^3u/L (0.00-0.03); IMMATURE GRAN % 0.5 % (0.00-0.4); Lymphocyte (Absolute #) 0.27 x10^3/uL (1.0-4.6); Lymphocytes % 3.5 % (24.0-44.0); Mean Corpuscular Hemoglobin 23.9 pg (26-32); Mean Corpuscular Hgb Concent. 27.8 g/dL (32-36); Mean Platelet Volume 9.6 fL (7.5-11.0); Monocyte (Absolute #) 0.05 x10^3/uL (0.0-1.3); Monocytes % 0.6 % (0.0-12.0); NUCLEATED RBC # 0.07 x10^3u/L (0.00-0.01); NUCLEATED RBC % 0.9 % (0.00-0.1); Neutrophil % 95.3 % (36.0-66.0); Platelet Count 262 x10^3/uL (150-450); Red Blood Count 3.14 x10^6/uL (4.1-5.4); Red Cell Distribution Width 18.9 % (11.5-14.0); White Blood Count 7.8 x10^3/uL (4.0-10.5)
[2022-10-14 03:47] LABS: ANION GAP 11.4 MEQ/L (5-15); BILIRUBIN,TOTAL 0.5 mg/dL (0.2-1.3); Creatinine 1 1.77 mg/dL (0.52-1.04); EST GLOMERULAR FILTRATION RATE 30.9 ML/MIN; Potassium 4.9 mmol/L (3.5-5.1); Total Protein 5.3 g/dL (6.3-8.2)
[2022-10-14 05:07] LABS: Slide Review 1 YES
[2022-10-14] MEDS: Spiriva 18 Mcg/Cap Inhaler IH SCH (06:36)
--- NOTE | 2022-10-14 08:32 | XRAY ---
Indication: Short of breath. COPD. Comparison: October 01, 2018 Portable chest now demonstrates borderline cardiomegaly, central vascular congestion, pulmonary edema, and small bibasilar effusions favoring cardiac decompensation/CHF. Superimposed pneumonia not completely excluded. Bony thorax intact again with osteopenia and degenerative changes.
[2022-10-14] MEDS: Protonix 40MG Tablet PO SCH (09:12)
[2022-10-14] MEDS: Lopressor 50 MG PO SCH ×2 (09:12→21:20)
[2022-10-14] MEDS ORDERED: LIPITOR 40MG PO SCH (10:00)
--- NOTE | 2022-10-14 12:38 | PCM.NOTE ---
Date and Time: 10/14/22 1232 Subjective Assessment: Patient ststes she went to ER at [facility] and was discharged home and collapsed in the parking lot getting into the truck. She came to [facility] and admitted through the Night Hospitalist to [facility]. Special Services Coordinator is Dr Doll at [facility] last admission was JUN [address] Doll's office. ER BNP 22,000 today is 16,000 aft 40 IV Lasix, Hbg 7.8 in ER today =7.5. Patient is in Afib on Xarelto with elevated D-dimer. Patient has COPD and has been intubated in the past. She is a full code. OBJECTIVE DATA Vital Signs: Vital Signs - 24 hr Temp Pulse Resp BP Pulse Ox 10/14/22 11:43 97.0 F 105 H 20 115/69 98 10/14/22 07:04 97.5 F 85 19 133/61 98 10/14/22 06:37 85 18 98 10/14/22 04:00 96.4 F 88 20 120/67 96 10/14/22 00:06 92 H 19 95 10/13/22 23:36 97.7 F 107/58 10/13/22 22:00 98 H 19 97 10/13/22 21:41 97.1 F 98 H 19 97/61 10/13/22 20:16 85 20 115/70 94 L 10/13/22 19:16 78 23 112/68 94 L 10/13/22 19:06 78 24 92 L 10/13/22 18:40 100 10/13/22 18:25 98.1 F 104 H 18 95/55 97 Pain Assessment - Last Documented Pain Intensity 0 Intake and Output: Intake & Output 10/12/22 10/13/22 10/14/22 10/15/22 11:59 11:59 11:59 11:59 Intake Total 120 Output Total 1000 Balance -880 Weight 77.5 kg Lab Results: Lab Results-Last 24 Hours 10/13/22 10/13/22 10/13/22 Range/Units 19:00 19:00 19:00 WBC 13.3 H (4.0-10.5) x10^3/uL RBC 3.24 L (4.1-5.4) x10^6/uL Hgb 7.8 L (12.0-16.0) g/dL Hct 28.2 L (35-47) % MCV 87.0 (78-100) fL MCH 24.1 L (26-32) pg MCHC 27.7 L (32-36) g/dL RDW 19.2 H (11.5-14.0) % Plt Count 291 (150-450) x10^3/uL MPV 9.4 (7.5-11.0) fL Gran % 88.6 H (36.0-66.0) % Immature Gran % (Auto) 0.8 H (0.00-0.4) % Nucleat RBC Rel Count 2.6 H (0.00-0.1) % Eos # (Auto) 0.05 (0-0.5) x10^3/uL Immature Gran # (Auto) 0.11 H (0.00-0.03) x10^3u/L Absolute Lymphs (auto) 0.58 L (1.0-4.6) x10^3/uL Absolute Monos (auto) 0.76 (0.0-1.3) x10^3/uL Absolute Nucleated RBC 0.35 H (0.00-0.01) x10^3u/L Lymphocytes % 4.4 L (24.0-44.0) % Monocytes % 5.7 (0.0-12.0) % Eosinophils % 0.4 (0.00-5.0) % Basophils % 0.1 (0.0-0.4) % Absolute Granulocytes 11.78 H (1.4-6.9) x10^3/uL Basophils # 0.01 (0-0.4) x10^3/uL Smear Path Review Pending D-Dimer 1.87 H* (0.0-0.50) mg/L Puncture Site pCO2 (35-45) mmHg pO2 (75-100) mmHg Base Excess (-2.0-2.0) O2 Saturation (94-100) g/dF ABG pH (7.35-7.45) ABG HCO3 (22-28) ABG O2 Sat (Measured) (95-100) % Mitchell Test A-a Gradient a/A Ratio Hemoglobin Carboxyhemoglobin (0.0-6.9) % THgb Methemoglobin (1.4-1.5) % Temperature C POC O2 Flow Rate % Sodium 136 L (137-145) mmol/L Potassium 4.6 (3.5-5.1) mmol/L Chloride 97 L (98-107) mmol/L Carbon Dioxide 32 H (22-30) mmol/L Anion Gap 11.0 (5-15) MEQ/L BUN 49 H (7-17) mg/dL Creatinine 1.94 H (0.52-1.04) mg/dL Estimated GFR 27.8 ML/MIN Glucose 128 H (74-106) mg/dL Calcium 8.1 L (8.4-10.2) mg/dL Total Bilirubin 0.50 (0.2-1.3) mg/dL AST 17 (14-36) U/L ALT 16 (0-35) U/L Alkaline Phosphatase 128 H (38-126) U/L Troponin I (0.000-0.034) ng/mL NT-Pro-B Natriuret Pep 10989 (<300) pg/mL Serum Total Protein 5.4 L (6.3-8.2) g/dL Albumin 3.0 L (3.5-5.0) g/dL Influenza Type A Ag (NEGATIVE) Influenza Type B Ag (NEGATIVE) RSV (PCR) (NEGATIVE) SARS-CoV-2 (PCR) (NEGATIVE) Slides for Path Review YES ABO Group Rh Factor Antibody Screen (NEGATIVE) 10/13/22 10/13/22 10/13/22 Range/Units 19:00 19:00 19:02 WBC (4.0-10.5) x10^3/uL RBC (4.1-5.4) x10^6/uL Hgb (12.0-16.0) g/dL Hct (35-47) % MCV (78-100) fL MCH (26-32) pg MCHC (32-36) g/dL RDW (11.5-14.0) % Plt Count (150-450) x10^3/uL MPV (7.5-11.0) fL Gran % (36.0-66.0) % Immature Gran % (Auto) (0.00-0.4) % Nucleat RBC Rel Count (0.00-0.1) % Eos # (Auto) (0-0.5) x10^3/uL Immature Gran # (Auto) (0.00-0.03) x10^3u/L Absolute Lymphs (auto) (1.0-4.6) x10^3/uL Absolute Monos (auto) (0.0-1.3) x10^3/uL Absolute Nucleated RBC (0.00-0.01) x10^3u/L Lymphocytes % (24.0-44.0) % Monocytes % (0.0-12.0) % Eosinophils % (0.00-5.0) % Basophils % (0.0-0.4) % Absolute Granulocytes (1.4-6.9) x10^3/uL Basophils # (0-0.4) x10^3/uL Smear Path Review D-Dimer (0.0-0.50) mg/L Puncture Site LEFT BRACHIAL pCO2 47 H (35-45) mmHg pO2 35 L* (75-100) mmHg Base Excess 0.9 (-2.0-2.0) O2 Saturation 56.1 L (94-100) g/dF ABG pH 7.36 (7.35-7.45) ABG HCO3 26.6 (22-28) ABG O2 Sat (Measured) 62.7 L (95-100) % Mitchell Test NOT APPLICABLE A-a Gradient 134 a/A Ratio 0.21 Hemoglobin 8.5 Carboxyhemoglobin 9.4 H* (0.0-6.9) % THgb Methemoglobin 1.1 L (1.4-1.5) % Temperature 37.0 C POC O2 Flow Rate 32 % Sodium (137-145) mmol/L Potassium 4.7 (3.5-5.1) mmol/L Chloride (98-107) mmol/L Carbon Dioxide (22-30) mmol/L Anion Gap (5-15) MEQ/L BUN (7-17) mg/dL Creatinine (0.52-1.04) mg/dL Estimated GFR ML/MIN Glucose (74-106) mg/dL Calcium (8.4-10.2) mg/dL Total Bilirubin (0.2-1.3) mg/dL AST (14-36) U/L ALT (0-35) U/L Alkaline Phosphatase (38-126) U/L Troponin I 0.022 (0.000-0.034) ng/mL NT-Pro-B Natriuret Pep (<300) pg/mL Serum Total Protein (6.3-8.2) g/dL Albumin (3.5-5.0) g/dL Influenza Type A Ag NEGATIVE (NEGATIVE) Influenza Type B Ag NEGATIVE (NEGATIVE) RSV (PCR) NEGATIVE (NEGATIVE) SARS-CoV-2 (PCR) NEGATIVE (NEGATIVE) Slides for Path Review ABO Group Rh Factor Antibody Screen (NEGATIVE) 10/13/22 10/13/22 10/14/22 Range/Units 20:05 22:50 03:15 WBC (4.0-10.5) x10^3/uL RBC (4.1-5.4) x10^6/uL Hgb (12.0-16.0) g/dL Hct (35-47) % MCV (78-100) fL MCH (26-32) pg MCHC (32-36) g/dL RDW (11.5-14.0) % Plt Count (150-450) x10^3/uL MPV (7.5-11.0) fL Gran % (36.0-66.0) % Immature Gran % (Auto) (0.00-0.4) % Nucleat RBC Rel Count (0.00-0.1) % Eos # (Auto) (0-0.5) x10^3/uL Immature Gran # (Auto) (0.00-0.03) x10^3u/L Absolute Lymphs (auto) (1.0-4.6) x10^3/uL Absolute Monos (auto) (0.0-1.3) x10^3/uL Absolute Nucleated RBC (0.00-0.01) x10^3u/L Lymphocytes % (24.0-44.0) % Monocytes % (0.0-12.0) % Eosinophils % (0.00-5.0) % Basophils % (0.0-0.4) % Absolute Granulocytes (1.4-6.9) x10^3/uL Basophils # (0-0.4) x10^3/uL Smear Path Review D-Dimer (0.0-0.50) mg/L Puncture Site pCO2 (35-45) mmHg pO2 (75-100) mmHg Base Excess (-2.0-2.0) O2 Saturation (94-100) g/dF ABG pH (7.35-7.45) ABG HCO3 (22-28) ABG O2 Sat (Measured) (95-100) % Mitchell Test A-a Gradient a/A Ratio Hemoglobin Carboxyhemoglobin (0.0-6.9) % THgb Methemoglobin (1.4-1.5) % Temperature C POC O2 Flow Rate % Sodium (137-145) mmol/L Potassium (3.5-5.1) mmol/L Chloride (98-107) mmol/L Carbon Dioxide (22-30) mmol/L Anion Gap (5-15) MEQ/L BUN (7-17) mg/dL Creatinine (0.52-1.04) mg/dL Estimated GFR ML/MIN Glucose (74-106) mg/dL Calcium (8.4-10.2) mg/dL Total Bilirubin (0.2-1.3) mg/dL AST (14-36) U/L ALT (0-35) U/L Alkaline Phosphatase (38-126) U/L Troponin I 0.046 H* 0.058 H* (0.000-0.034) ng/mL NT-Pro-B Natriuret Pep (<300) pg/mL Serum Total Protein (6.3-8.2) g/dL Albumin (3.5-5.0) g/dL Influenza Type A Ag (NEGATIVE) Influenza Type B Ag (NEGATIVE) RSV (PCR) (NEGATIVE) SARS-CoV-2 (PCR) (NEGATIVE) Slides for Path Review ABO Group A Rh Factor POSITIVE Antibody Screen NEGATIVE (NEGATIVE) 10/14/22 10/14/22 Range/Units 03:15 03:15 WBC 7.8 (4.0-10.5) x10^3/uL RBC 3.14 L (4.1-5.4) x10^6/uL Hgb 7.5 L (12.0-16.0) g/dL Hct 27.0 L (35-47) % MCV 86.0 (78-100) fL MCH 23.9 L (26-32) pg MCHC 27.8 L (32-36) g/dL RDW 18.9 H (11.5-14.0) % Plt Count 262 (150-450) x10^3/uL MPV 9.6 (7.5-11.0) fL Gran % 95.3 H (36.0-66.0) % Immature Gran % (Auto) 0.5 H (0.00-0.4) % Nucleat RBC Rel Count 0.9 H (0.00-0.1) % Eos # (Auto) 0 (0-0.5) x10^3/uL Immature Gran # (Auto) 0.04 H (0.00-0.03) x10^3u/L Absolute Lymphs (auto) 0.27 L (1.0-4.6) x10^3/uL Absolute Monos (auto) 0.05 (0.0-1.3) x10^3/uL Absolute Nucleated RBC 0.07 H (0.00-0.01) x10^3u/L Lymphocytes % 3.5 L (24.0-44.0) % Monocytes % 0.6 (0.0-12.0) % Eosinophils % 0.0 (0.00-5.0) % Basophils % 0.1 (0.0-0.4) % Absolute Granulocytes 7.45 H (1.4-6.9) x10^3/uL Basophils # 0.01 (0-0.4) x10^3/uL Smear Path Review D-Dimer (0.0-0.50) mg/L Puncture Site pCO2 (35-45) mmHg pO2 (75-100) mmHg Base Excess (-2.0-2.0) O2 Saturation (94-100) g/dF ABG pH (7.35-7.45) ABG HCO3 (22-28) ABG O2 Sat (Measured) (95-100) % Mitchell Test A-a Gradient a/A Ratio Hemoglobin Carboxyhemoglobin (0.0-6.9) % THgb Methemoglobin (1.4-1.5) % Temperature C POC O2 Flow Rate % Sodium 135 L (137-145) mmol/L Potassium 4.9 (3.5-5.1) mmol/L Chloride 98 (98-107) mmol/L Carbon Dioxide 31 H (22-30) mmol/L Anion Gap 11.4 (5-15) MEQ/L BUN 52 H (7-17) mg/dL Creatinine 1.77 H (0.52-1.04) mg/dL Estimated GFR 30.9 ML/MIN Glucose 163 H (74-106) mg/dL Calcium 8.0 L (8.4-10.2) mg/dL Total Bilirubin 0.50 (0.2-1.3) mg/dL AST 19 (14-36) U/L ALT 17 (0-35) U/L Alkaline Phosphatase 118 (38-126) U/L Troponin I (0.000-0.034) ng/mL NT-Pro-B Natriuret Pep 91838 (<300) pg/mL Serum Total Protein 5.3 L (6.3-8.2) g/dL Albumin 3.0 L (3.5-5.0) g/dL Influenza Type A Ag (NEGATIVE) Influenza Type B Ag (NEGATIVE) RSV (PCR) (NEGATIVE) SARS-CoV-2 (PCR) (NEGATIVE) Slides for Path Review YES ABO Group Rh Factor Antibody Screen (NEGATIVE) Radiology Exams: Radiology Procedures Category Date Time Status CHEST 1 VIEW (PORTABLE) Stat Exams 10/13/22 18:40 Completed
[2022-10-14] MEDS: Lasix 20 MG/2 ML IV SCH (12:42)
[2022-10-14] MEDS: Klor Con PO SCH (12:42)
[2022-10-14] MEDS: Zithromax 250 MG TABLET PO SCH (12:42)
[2022-10-14] MEDS: Cardizem CD PO SCH (13:41)
[2022-10-14] MEDS: solu-MEDROL 80 MG, Sterile H2O 10 ml 2 ML IV SCH ×4 (13:41→21:21)
[2022-10-14] MEDS: XARELTO 10 MG TABLET PO SCH (17:57)
[2022-10-14] MEDS: Ativan 0.5 MG PO PRN (17:57)
[2022-10-14] MEDS: Advair Hfa 115/21 Common canister IH SCH (18:49)
[2022-10-14] MEDS ORDERED: ZOCOR 20MG PO SCH (22:00)
[2022-10-14] MEDS ORDERED: Zocor 10MG PO SCH (22:00)
[2022-10-15] MEDS: PROVENTIL 2.5 MG/3 ML NEB IH SCH ×4 (00:10→18:37)
[2022-10-15 04:40] LABS: Hematocrit 23.7 % (35-47); Hemoglobin 7.1 g/dL (12.0-16.0); Mean Cell Volume 81.4 fL (78-100); Mean Corpuscular Hemoglobin 24.4 pg (26-32); Platelet Count 312 x10^3/uL (150-450); Red Blood Count 2.91 x10^6/uL (4.1-5.4); Red Cell Distribution Width 19.1 % (11.5-14.0)
[2022-10-15 04:52] LABS: ALBUMIN 2.8 g/dL (3.5-5.0); ANION GAP 10.8 MEQ/L (5-15); BILIRUBIN,TOTAL 0.4 mg/dL (0.2-1.3); Creatinine 1 1.52 mg/dL (0.52-1.04); EST GLOMERULAR FILTRATION RATE 36.8 ML/MIN; Potassium 4.4 mmol/L (3.5-5.1)
[2022-10-15] MEDS: solu-MEDROL 80 MG, Sterile H2O 10 ml 2 ML IV SCH ×4 (05:52→13:52)
[2022-10-15] MEDS: Spiriva 18 Mcg/Cap Inhaler IH SCH (06:49)
[2022-10-15] MEDS: Advair Hfa 115/21 Common canister IH SCH ×2 (06:49→18:37)
[2022-10-15] MEDS: Lasix 20 MG/2 ML IV SCH (09:00)
[2022-10-15] MEDS: Protonix 40MG Tablet PO SCH (09:00)
[2022-10-15] MEDS: Klor Con PO SCH (09:00)
[2022-10-15] MEDS: Cardizem CD PO SCH (09:00)
[2022-10-15] MEDS: Zithromax 250 MG TABLET PO SCH (09:01)
[2022-10-15] MEDS: Lopressor 50 MG PO SCH (09:01)
[2022-10-15] MEDS ORDERED: DILTIAZEM HCL 240 MG PO SCH (10:00)
--- NOTE | 2022-10-15 12:27 | PCM.NOTE ---
Date and Time: 10/15/22 1223 Subjective Assessment: Pt on 3L NC. No new complaints today. Hgb 7.1 this morning; discussed possibility of blood transfusion and risks. - Review of Systems Constitutional: No Fever Respiratory: Short Of Breath Objective Exam General Appearance: no apparent distress, alert Neurologic Exam: oriented x 3, cooperative Skin Exam: normal color, warm, dry, No rash Eye Exam: eyes nml inspection Ears, Nose, Throat Exam: moist mucous membranes Neck Exam: normal inspection Respiratory Exam: diminished breath sounds (good air exchange), No crackles/rales, No rhonchi, No wheezing Cardiovascular Exam: normal heart sounds, irregular, No murmur Gastrointestinal/Abdomen Exam: soft, normal bowel sounds, No tenderness, No distention, No mass, No guarding, No rebound Extremity Exam: swelling (trace pretibial edema bilat) OBJECTIVE DATA Vital Signs: Vital Signs - 24 hr Temp Pulse Resp BP Pulse Ox 10/15/22 11:24 96.9 F 89 18 114/59 99 10/15/22 10:56 98 10/15/22 07:25 96.9 F 100 H 18 126/61 99 10/15/22 06:53 77 22 99 10/15/22 03:50 97.4 F 98 H 24 120/73 97 10/15/22 00:10 94 H 20 99 10/14/22 23:17 97.8 F 119 H 20 106/59 97 10/14/22 19:29 97.5 F 109 H 22 106/58 99 10/14/22 18:50 77 20 98 10/14/22 16:00 97.3 F 107 H 18 170/69 99 10/14/22 13:24 100 H 22 94 L Pain Assessment - Last Documented Pain Intensity 8 Pain Scale Used 0-10 Pain Scale Intake and Output: Intake & Output 10/13/22 10/14/22 10/15/22 10/16/22 11:59 11:59 11:59 11:59 Intake Total 120 1700 Output Total 1000 2100 Balance -880 -400 Weight 77.5 kg 75.1 kg Lab Results: Lab Results-Last 24 Hours 10/13/22 10/14/22 10/15/22 Range/Units 19:00 15:15 04:11 WBC 10.0 (4.0-10.5) x10^3/uL RBC 2.91 L (4.1-5.4) x10^6/uL Hgb 7.1 L (12.0-16.0) g/dL Hct 23.7 L (35-47) % MCV 81.4 (78-100) fL MCH 24.4 L (26-32) pg MCHC 30.0 L (32-36) g/dL RDW 19.1 H (11.5-14.0) % Plt Count 312 (150-450) x10^3/uL MPV 10.0 (7.5-11.0) fL Smear Path Review Sodium (137-145) mmol/L Potassium (3.5-5.1) mmol/L Chloride (98-107) mmol/L Carbon Dioxide (22-30) mmol/L Anion Gap (5-15) MEQ/L BUN (7-17) mg/dL Creatinine (0.52-1.04) mg/dL Estimated GFR ML/MIN Glucose (74-106) mg/dL Calcium (8.4-10.2) mg/dL Total Bilirubin (0.2-1.3) mg/dL AST (14-36) U/L ALT (0-35) U/L Alkaline Phosphatase (38-126) U/L Troponin I 0.051 H* (0.000-0.034) ng/mL Serum Total Protein (6.3-8.2) g/dL Albumin (3.5-5.0) g/dL 10/15/22 Range/Units 04:11 WBC (4.0-10.5) x10^3/uL RBC (4.1-5.4) x10^6/uL Hgb (12.0-16.0) g/dL Hct (35-47) % MCV (78-100) fL MCH (26-32) pg MCHC (32-36) g/dL RDW (11.5-14.0) % Plt Count (150-450) x10^3/uL MPV (7.5-11.0) fL Smear Path Review Sodium 132 L (137-145) mmol/L Potassium 4.4 (3.5-5.1) mmol/L Chloride 94 L (98-107) mmol/L Carbon Dioxide 32 H (22-30) mmol/L Anion Gap 10.8 (5-15) MEQ/L BUN 60 H (7-17) mg/dL Creatinine 1.52 H (0.52-1.04) mg/dL Estimated GFR 36.8 ML/MIN Glucose 152 H (74-106) mg/dL Calcium 8.0 L (8.4-10.2) mg/dL Total Bilirubin 0.40 (0.2-1.3) mg/dL AST 15 (14-36) U/L ALT 14 (0-35) U/L Alkaline Phosphatase 99 (38-126) U/L Troponin I (0.000-0.034) ng/mL Serum Total Protein 5.0 L (6.3-8.2) g/dL Albumin 2.8 L (3.5-5.0) g/dL Radiology Exams: Radiology Procedures Category Date Time Status CHEST 1 VIEW (PORTABLE) Stat Exams 10/13/22 18:40 Completed PULMONARY PERF VENTILATION [NUCMED] Urgent Exams 10/16/22 08:00 Ordered Multi-Disciplinary Progress Notes: Multi-Disciplinary Progress Notes 10/15/22 09:02 Case Management Note by Lucille Francois S/W PATIENT. CURRENTLY AWAITING A BED AT [facility] BUT STILL CONTINUES TO DENY ANY NEW NEEDS AT DISCHARGE. SHE STILL PLANS TO GO HOME WITH SPOUSE AT [facility] WITH NO ADDITIONAL NEEDS. WILL CONT TO UTILIZE [facility] FOR HER AND [facility] NEEDS. REFUSING [facility] AT THIS TIME. Initialized on 10/15/22 09:02 - END OF NOTE Assessment/Plan (1) COPD (chronic obstructive pulmonary disease) Current Visit: Yes Status: Acute Assessment & Plan: Plan is for transfer to ; pt has been accepted and is waiting on a bed. (2) CHF (congestive heart failure) Current Visit: Yes Status: Chronic Code(s): I50.9 - HEART FAILURE, UNSP ECIFIED (3) Anemia Current Visit: Yes Status: Chronic Qualifiers: Iron deficiency anemia type: chronic blood loss Assessment & Plan: hgb 7.1 this morning. Advised pt if <7 will need transfusion. Code(s): D64.9 - ANEMIA, UNSPECIFIED (4) Atrial fibrillation Current Visit: Yes Status: Chronic Qualifiers: Atrial fibrillation type: paroxysmal Qualified Code(s): I48.0 - Paroxysmal atrial fibrillation Code(s): I48.91 - UNSPECIFIED ATRIAL FIBRILLATION (5) Chronic renal failure Current Visit: Yes Status: Chronic Qualifiers: Chronic kidney disease stage: stage 3 (moderate) (6) Hyponatremia Current Visit: Yes Status: Acute Assessment & Plan: mild Code(s): E87.1 - HYPO-OSMOLALITY AND HYPONATREMIA
[2022-10-15] MEDS: XARELTO 10 MG TABLET PO SCH (17:21)
[2022-10-15] MEDS: Ativan 0.5 MG PO PRN (17:23)
[2022-10-15 18:57] VITALS: O2SAT 97
[2022-10-15 19:58] VITALS: BP 115/65; PULSE 87
== END 2022-10-15 19:45 | disposition home or self-care (01) | DRG 812 ==
LOC: ED 18:09 → MED SURG 21:11
PROVIDERS: ADMIT Internal Medicine; ATTEND Family Medicine
DX: D64.9 Anemia, unspecified (principal); J44.1 Chronic obstructive pulmonary disease with (acute) exacerbation; I13.0 Hypertensive heart and chronic kidney disease with heart failure and stage 1 through stage 4 chronic kidney disease, or unspecified chronic kidney disease; E87.0 Hyperosmolality and hypernatremia; I50.9 Heart failure, unspecified; I25.10 Atherosclerotic heart disease of native coronary artery without angina pectoris; N18.30 Chronic kidney disease, stage 3 unspecified; E78.5 Hyperlipidemia, unspecified; R09.02 Hypoxemia; I48.91 Unspecified atrial fibrillation; D72.829 Elevated white blood cell count, unspecified; Z79.01 Long term (current) use of anticoagulants; Z79.899 Other long term (current) drug therapy; Z20.828 Contact with and (suspected) exposure to other viral communicable diseases; Z72.0 Tobacco use; Z99.81 Dependence on supplemental oxygen; Z85.41 Personal history of malignant neoplasm of cervix uteri
CPT/HCPCS: 0241U; 36000; 36415; 36600; 71045; 80053; 82375; 82803; 83880; 84484; 85025; 85027; 85379; 86850; 86900; 86901; 93005; 93041; 94002; 94003; 94640; 94760; 96374; 96375; 99285; 99291; J1940; J2930; J7609; A9270-GY